=== PATIENT | female | born 1965 | race Caucasian/White ===

== ENCOUNTER 2017-03-11 08:39 | Emergency (ER) | payer OTHER ==
[2017-03-11 08:50] VITALS: BP 153/83
[2017-03-11] MEDS ORDERED: CLINDAMYCIN 150 MG CAPSULE PO STA (09:11)
--- NOTE | 2017-03-11 09:14 | ED Physician Documentation ---
PD HPI HEENT - Stated complaint Stated Complaint: SWOLLEN FACE/R - Chief complaint Chief Complaint: Heent - History obtained from History obtained from: Patient - History of Present Illness Timing - onset: How many days ago (4) Timing - duration: Days (4) Timing - details: Gradual onset Location: Other (right facial) Associated symptoms: Facial swelling. No: Fever, Headache, Cough Similar symptoms before: No diagnosis - Additional information Additional information: The patient is a 52-year-old female who presents with right facial swelling that started 4 days ago and has been gradually increasing. She reports swelling of her right submandibular glands. She denies fever, headache, earache , or toothache. She has a history of similar symptoms intermittently for years , and reports that it usually resolves with a "salty taste" in her mouth. Review of Systems Constitutional: denies: Fever Eyes: denies: Irritation Ears: denies: Ear pain Nose: denies: Congestion Throat: reports: Other (Swollen glands). denies: Sore throat Cardiac: denies: Chest pain / pressure Respiratory: denies: Dyspnea, Cough GI: denies: Abdominal Pain, Nausea, Vomiting : denies: Dysuria Skin: denies: Rash Musculoskeletal: denies: Neck pain, Back pain, Extremity swelling Neurologic: denies: Focal weakness, Numbness, Headache PD PAST MEDICAL HISTORY - Past Medical History Past Medical History: Yes Cardiovascular: Hypertension, High cholesterol, Coronary artery disease, [place] Respiratory: Asthma, COPD, Pneumonia Neuro: None Endocrine/Autoimmune: Type 2 diabetes GI: GERD, Diverticulitis, Other : None HEENT: Other Psych: Anxiety, Panic attacks Musculoskeletal: None, Osteoarthritis Derm: None - Past Surgical History Past Surgical History: Yes General: Colonoscopy 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, 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, Other Cardiovascular: Coronary stent - Present Medications Home Medications: Ambulatory Orders Medication Instructions Recorded Confirmed metFORMIN [Glucophage] 850 mg PO TIDWM 01/04/14 10/20/16 [place]-3/Dha/Epa/Fish Oil [Fish Oil] 1,200 mg PO BID 09/04/14 10/20/16 Pioglitazone [Actos] 45 mg PO DAILY 09/04/14 10/20/16 Simvastatin 80 mg PO DAILY 09/04/14 10/20/16 Clopidogrel [Plavix] 75 mg PO DAILY 01/29/16 10/20/16 Albuterol 2.5 mg INH Q4H PRN 01/30/16 10/20/16 Multivitamin [Theragran] 1 each PO ONCE 01/30/16 10/20/16 Azithromycin [Zithromax] 250 mg PO DAILY #6 tablet 10/20/16 Glipizide 5 mg ORAL DAILY 10/20/16 10/20/16 Omeprazole 20 mg ORAL DAILY 10/20/16 10/20/16 Sertraline [Zoloft] 50 mg ORAL DAILY 10/20/16 10/20/16 predniSONE [Deltasone] 10 mg PO DAILY #26 tablet 10/20/16 Clindamycin HCl 300 mg PO QID #28 capsule 03/11/17 - Allergies Allergies/Adverse Reactions: Allergies Allergy/AdvReac Type Severity Reaction Status Date / Time gabapentin Allergy Intermediate Rash Verified 10/20/16 07:48 Sulfa (Sulfonamide Allergy Intermediate Rash Verified 10/20/16 07:48 Antibiotics) lisinopril AdvReac Intermediate Rash/cough Verified 10/20/16 07:48 "All pain medication" Allergy Unknown Hives Uncoded 03/11/17 08:51 - Social History Does the pt smoke?: Yes Smoking Status: Current every day smoker Does the pt drink ETOH?: No Does the pt have substance abuse?: No - Immunizations Immunizations are current?: No Immunizations: TDAP >10years/unknown PD ED PE NORMAL - Vitals Vital signs reviewed: Yes (Initially hypertensive.) - General General: Alert and oriented X 3, Well developed/nourished - HEENT HEENT: Atraumatic, PERRL, EOMI, Ears normal, Pharynx benign, Other (There is mild right facial swelling mostly at the temporomandibular region, with associated mild tenderness to palpation. There is no tenderness with palpation on individual teeth.) - Neck Neck: Supple, no meningeal sign, Thyroid normal, No JVD, Other (Mildly enlarged anterior cervical and submandibular nodes on the right.) - Cardiac Cardiac: RRR, No murmur - Respiratory Respiratory: No respiratory distress, Clear bilaterally - Abdomen Abdomen: Soft, Non tender - Back Back: No CVA TTP - Derm Derm: No rash - Extremities Extremities: No edema, No calf tenderness / cord - Neuro Neuro: Alert and oriented X 3, No motor deficit, Normal speech Results - Vitals Vitals: Oxygen O2 Source Room air PD MEDICAL DECISION MAKING - ED course Complexity details: considered differential, d/w patient ED course: The patient's facial swelling is most likely caused by dental abscess, even though she does not have toothache. The fact that she has a history of similar symptoms relieved by foul tasting drainage in her mouth, suggests spontaneously draining abscess. Parotid duct stenosis is a less likely consideration. It is unlikely that obstruction of the parotid gland would result in cervical adenopathy. The degree of swelling is not so significant as to warrant emergent CT scanning of the facial soft tissue. Treatment in the emergency department included administration of clindamycin, 300 mg orally. She is being discharged with prescription for clindamycin. I discussed with her the likely cause of her illness, antibiotic treatment and outpatient follow-up, including dentistry, as well as potentially worrisome signs or symptoms that should prompt reevaluation in the emergency department. Departure - Departure Disposition: 01 Home, Self Care Clinical Impression: Dental abscess Condition: Stable Instructions: ED Abscess Dental Follow-Up: Bouchra Torres MD [Primary Care Provider] - Prescriptions: Clindamycin HCl 300 mg PO QID #28 capsule Comments: Take clindamycin 4 times daily as prescribed. Each probiotic yogurt while on antibiotic therapy. Followup with a dentist as soon as possible. Call to schedule an appointment. Return to the emergency department if you develop increasing facial swelling, increasing pain, or otherwise worsening symptoms. Discharge Date/Time: 03/11/17 09:33
[2017-03-11] MEDS ORDERED: CLINDAMYCIN 150 MG CAPSULE PO ONE (09:27)
== END 2017-03-11 09:33 | disposition home or self-care (01) ==
LOC: ED 08:39
DX: K04.7 Periapical abscess without sinus (principal); I10 Essential (primary) hypertension; E11.9 Type 2 diabetes mellitus without complications; Z79.84 Long term (current) use of oral hypoglycemic drugs; Z79.02 Long term (current) use of antithrombotics/antiplatelets; F17.200 Nicotine dependence, unspecified, uncomplicated
CPT/HCPCS: 99282; 99283; A9270

== ENCOUNTER 2017-03-31 18:15 | Emergency (ER) | payer OTHER ==
--- NOTE | 2017-03-31 19:35 | ED Physician Documentation ---
PD HPI UPPER EXT INJURY - Stated complaint Stated Complaint: LT HAND PX - Chief complaint Chief Complaint: Ext Problem - History obtained from History obtained from: Patient - History of Present Illness Location: Left, Wrist (dorsal aspect) Type of injury: No: Fall, Twist Timing - duration: Days Timing - details: Gradual onset, Still present (also having pain in right hip.) Improved by: Rest Worsened by: Moving Associated symptoms: No: Weakness, Numbness, Swelling, Discolored Similar symptoms before: Has not had sx before Recently seen: Not recently seen Review of Systems Constitutional: reports: Myalgias, Fatigue. denies: Fever, Chills Nose: denies: Rhinorrhea / runny nose, Congestion Throat: denies: Sore throat Cardiac: denies: Chest pain / pressure Respiratory: denies: Cough GI: denies: Abdominal Pain, Nausea, Vomiting, Diarrhea Skin: denies: Rash, Lesions PD PAST MEDICAL HISTORY - Past Medical History Cardiovascular: Hypertension, High cholesterol, Coronary artery disease, [place] Respiratory: Asthma, COPD, Pneumonia Neuro: None Endocrine/Autoimmune: Type 2 diabetes GI: GERD, Diverticulitis, Other : None HEENT: Other Psych: Anxiety, Panic attacks Musculoskeletal: None, Osteoarthritis Derm: None - Past Surgical History Past Surgical History: Yes General: Colonoscopy 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, 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, Other Cardiovascular: Coronary stent - Present Medications Home Medications: Ambulatory Orders Medication Instructions Recorded Confirmed metFORMIN [Glucophage] 850 mg PO TIDWM 01/04/14 03/31/17 [place]-3/Dha/Epa/Fish Oil [Fish Oil] 1,200 mg PO BID 09/04/14 03/31/17 Pioglitazone [Actos] 45 mg PO DAILY 09/04/14 03/31/17 Simvastatin 80 mg PO DAILY 09/04/14 03/31/17 Clopidogrel [Plavix] 75 mg PO DAILY 01/29/16 03/31/17 Albuterol 2.5 mg INH Q4H PRN 01/30/16 03/31/17 Multivitamin [Theragran] 1 each PO ONCE 01/30/16 03/31/17 Azithromycin [Zithromax] 250 mg PO DAILY #6 tablet 10/20/16 03/31/17 Glipizide 5 mg ORAL DAILY 10/20/16 03/31/17 Omeprazole 20 mg ORAL DAILY 10/20/16 03/31/17 Sertraline [Zoloft] 50 mg ORAL DAILY 10/20/16 03/31/17 predniSONE [Deltasone] 10 mg PO DAILY #26 tablet 10/20/16 03/31/17 Clindamycin HCl 300 mg PO QID #28 capsule 03/11/17 03/31/17 Dexamethasone [Decadron] 4 mg PO DAILY #5 tablet 03/31/17 - Allergies Allergies/Adverse Reactions: Allergies Allergy/AdvReac Type Severity Reaction Status Date / Time gabapentin Allergy Intermediate Rash Verified 03/31/17 18:19 Sulfa (Sulfonamide Allergy Intermediate Rash Verified 03/31/17 18:19 Antibiotics) lisinopril AdvReac Intermediate Rash/cough Verified 03/31/17 18:19 "All pain medication" Allergy Unknown Hives Uncoded 03/31/17 18:19 - Social History Does the pt smoke?: Yes Smoking Status: Current every day smoker Does the pt drink ETOH?: No Does the pt have substance abuse?: No - Immunizations Immunizations are current?: No Immunizations: TDAP >10years/unknown PD ED PE NORMAL - Vitals Vital signs reviewed: Yes - General General: Alert and oriented X 3, No acute distress, Well developed/nourished - Neck Neck: Supple, no meningeal sign, No adenopathy - Cardiac Cardiac: RRR, No murmur - Respiratory Respiratory: Clear bilaterally - Abdomen Abdomen: Normal bowel sounds, Soft, Non tender - Back Back: No CVA TTP - Derm Derm: Normal color, Warm and dry, No rash - Extremities Extremities: Other (left wrist with tenderness dorsum mid aspect without drepitance, redness, warmth. Right hip with some tenderness laterally. No noted warmth of the joint. ) Results - Vitals Vitals: Oxygen O2 Source Room air - Labs Labs: Laboratory Tests 03/31/17 03/31/17 03/31/17 20:13 20:13 20:13 WBC 11.4 H RBC 4.63 Hgb 10.7 L Hct 35.0 L MCV 75.5 L MCH 23.1 L MCHC 30.6 L RDW 18.2 H Plt Count 341 MPV 7.8 L Neut # 7.1 H Lymph # 3.3 [place] # 0.7 Eos # 0.1 Baso # 0.1 Absolute Nucleated RBC 0.00 Nucleated RBCs 0.0 ESR 21 Sodium 138 Potassium 3.7 Chloride 103 Carbon Dioxide 25 Anion Gap 10.0 BUN 19 Creatinine 0.7 Estimated GFR (MDRD) 88 L Glucose 98 Calcium 9.6 Total Bilirubin 0.3 AST 16 ALT 18 Alkaline Phosphatase 72 C-Reactive Protein 1.0 Total Protein 7.2 Albumin 4.0 Globulin 3.2 Albumin/Globulin Ratio 1.3 Lipase 47 PD MEDICAL DECISION MAKING - ED course Complexity details: reviewed results, considered differential (presume coincidence of pain in wrist and hip. No markers to suggest autimmune nor infectious. ), d/w patient Departure - Departure Disposition: Home, Self Care Clinical Impression: Left wrist tendonitis, Right hip pain Condition: Stable Record reviewed to determine appropriate education?: Yes Instructions: ED Sprain Wrist Follow-Up: Bouchra Torres MD [Primary Care Provider] - Prescriptions: Dexamethasone [Decadron] 4 mg PO DAILY #5 tablet Comments: Use your wrist brace to support the wrist. Decadron daily for 5 days to reduce inflammation. Add Tylenol 650 mg 4 times daily for the pain. Activity as able. Recheck if not improved over the next several days/week. Discharge Date/Time: 03/31/17 21:26
[2017-03-31] MEDS ORDERED: DEXAMETHASONE 10 MG/ML VIAL PO STA (19:59)
[2017-03-31] MEDS ORDERED: ACETAMINOPHEN 500 MG TABLET PO STA (19:59)
[2017-03-31] MEDS ORDERED: ACETAMINOPHEN 500 MG TABLET PO ONE (20:02)
[2017-03-31] MEDS ORDERED: DEXAMETHASONE 10 MG/ML VIAL ONE (20:02)
[2017-03-31 20:24] LABS: BASOPHILS # (AUTO) 0.1 10^3/uL (0.0-0.1); BASOPHILS % (AUTO) 0.9 %; EOSINOPHILS # (AUTO) 0.1 10^3/uL (0.0-0.7); EOSINOPHILS % (AUTO) 1.3 %; HGB - HEMOGLOBIN 10.7 g/dL (12.0-16.0); LYMPHOCYTES # (AUTO) 3.3 10^3/uL (1.5-3.5); LYMPHOCYTES % (AUTO) 29.1 %; MEAN CORPUSCULAR HEMOGLOBIN 23.1 pg (27.0-31.0); MEAN CORPUSCULAR HGB CONC 30.6 g/dL (32.0-36.0); MEAN CORPUSCULAR VOLUME 75.5 fL (81.0-99.0); MEAN PLATELET VOLUME 7.8 fL (7.9-10.8); MONOCYTES # (AUTO) 0.7 10^3/uL (0.0-1.0); MONOCYTES % (AUTO) 6.5 %; NEUTROPHILS # (AUTO) 7.1 10^3/uL (1.5-6.6); NEUTROPHILS % (AUTO) 62.2 %; RED BLOOD COUNT 4.63 10^6/uL (4.20-5.40); RED CELL DISTRIBUTION WIDTH 18.2 % (12.0-15.0); UNCORRECTED WHITE BLOOD COUNT 11.4 x10^3/uL; WHITE BLOOD COUNT 11.4 x10^3/uL (4.8-10.8)
[2017-03-31 20:36] VITALS: BP 142/79
[2017-03-31 20:38] LABS: ALBUMIN/GLOBULIN RATIO 1.3 (1.0-2.2); BILIRUBIN,TOTAL 0.3 mg/dL (0.2-1.0); CALCIUM 9.6 mg/dL (8.5-10.3); CREATININE 0.7 mg/dL (0.4-1.0); POTASSIUM 3.7 mmol/L (3.5-5.0); TOTAL PROTEIN 7.2 g/dL (6.7-8.2)
== END 2017-03-31 21:26 | disposition home or self-care (01) ==
LOC: ED 18:15
DX: M77.8 Other enthesopathies, not elsewhere classified (principal); M25.532 Pain in left wrist; M25.551 Pain in right hip; M19.90 Unspecified osteoarthritis, unspecified site; I10 Essential (primary) hypertension; E11.9 Type 2 diabetes mellitus without complications; Z79.84 Long term (current) use of oral hypoglycemic drugs; Z79.02 Long term (current) use of antithrombotics/antiplatelets; F17.200 Nicotine dependence, unspecified, uncomplicated
CPT/HCPCS: 36415; 80053; 83690; 85025; 85651; 86140; 99283; A9270

== ENCOUNTER 2017-04-05 22:08 | Emergency (ER) | payer OTHER ==
[2017-04-05] MEDS ORDERED: DEXAMETHASONE 10 MG/ML VIAL PO STA (22:47)
[2017-04-05] MEDS ORDERED: diazePAM 5 MG TABLET PO STA (22:47)
[2017-04-05] MEDS ORDERED: KETOROLAC 60 MG/2 ML VIAL IM STA (22:47)
[2017-04-05] MEDS ORDERED: KETOROLAC 60 MG/2 ML VIAL IVP STA (22:55)
[2017-04-05] MEDS ORDERED: DEXAMETHASONE 10 MG/ML VIAL ONE (22:56)
[2017-04-05] MEDS ORDERED: diazePAM 5 MG TABLET PO ONE (22:56)
[2017-04-05] MEDS ORDERED: KETOROLAC 60 MG/2 ML VIAL ONE (22:56)
[2017-04-05 22:57] LABS: EOSINOPHILS # (AUTO) 0.2 10^3/uL (0.0-0.7); RED CELL DISTRIBUTION WIDTH 18.5 % (12.0-15.0)
[2017-04-05 23:00] LABS: BASOPHILS # (AUTO) 0.1 10^3/uL (0.0-0.1); BASOPHILS % (AUTO) 0.9 %; EOSINOPHILS % (AUTO) 1.4 %; HCT - HEMATOCRIT 35.3 % (37.0-47.0); HGB - HEMOGLOBIN 10.7 g/dL (12.0-16.0); LYMPHOCYTES # (AUTO) 5.5 10^3/uL (1.5-3.5); LYMPHOCYTES % (AUTO) 38.1 %; MEAN CORPUSCULAR HEMOGLOBIN 23.1 pg (27.0-31.0); MEAN CORPUSCULAR HGB CONC 30.3 g/dL (32.0-36.0); MEAN CORPUSCULAR VOLUME 76.1 fL (81.0-99.0); MEAN PLATELET VOLUME 7.2 fL (7.9-10.8); MONOCYTES # (AUTO) 1.1 10^3/uL (0.0-1.0); MONOCYTES % (AUTO) 7.9 %; NEUTROPHILS # (AUTO) 7.4 10^3/uL (1.5-6.6); NEUTROPHILS % (AUTO) 51.7 %; NUCLEATED RED BLOOD CELLS AUTO 0.1 /100WBC; RED BLOOD COUNT 4.64 10^6/uL (4.20-5.40); UNCORRECTED WHITE BLOOD COUNT 14.3 x10^3/uL; WHITE BLOOD COUNT 14.3 x10^3/uL (4.8-10.8)
--- NOTE | 2017-04-05 23:05 | ED Physician Documentation ---
PD HPI UPPER EXT INJURY - Stated complaint Stated Complaint: UNABLE TO MOVE ARMS - Chief complaint Chief Complaint: General - History obtained from History obtained from: Patient, Family - History of Present Illness Location: Both, Shoulder Type of injury: Other (repetitive movements) Where injury occurred: Home, Work Timing - onset: How many weeks ago (1) Timing - details: Abrupt onset Improved by: Immobilization Worsened by: Moving, Palpating Associated symptoms: Weakness. No: Numbness, Swelling, Discolored Contributing factors: No: Prior ortho surgery, Prosthetic joint Similar symptoms before: Work up / diagnostics, Treatment, Follow up Recently seen: Clinic, Emergency Dept - Additonal information Additional information: Patient is a 52 year old female with multiple comorbidities who is presenting to the emergency department for bilateral upper extremity pain. Patient sttes that it started about a week ago in her left wrist. Patient came to the ed and was treated with nsaids and steroids and her symptoms improved. patient reports that the pain came back and migrated to her right shoulder. patient went and saw her pmd who did some tests and stated it might be rhabdo but the test results weren't back. patient states that she couldn't wait to see her doctor so she came to the emergency department for evaluation. Review of Systems Constitutional: reports: Myalgias. denies: Fever, Chills Eyes: denies: Loss of vision, Decreased vision Ears: denies: Loss of hearing, Ear pain Nose: denies: Rhinorrhea / runny nose, Congestion, Epistaxis Throat: denies: Sore throat Cardiac: denies: Chest pain / pressure, Palpitations, Calf pain Respiratory: denies: Cough, Wheezing GI: denies: Abdominal Pain, Nausea, Vomiting : denies: Dysuria, Frequency, Hesitancy Skin: denies: Rash, Lesions, Abrasion (s) Musculoskeletal: reports: Extremity pain, Joint pain Neurologic: denies: Generalized weakness, Focal weakness, Numbness, Difficulty speaking, Near syncope Psychiatric: denies: Depressed Immunocompromised: denies: Immunocompromised PD PAST MEDICAL HISTORY - Past Medical History Cardiovascular: Hypertension, High cholesterol, Coronary artery disease, [place] Respiratory: Asthma, COPD, Pneumonia Neuro: None Endocrine/Autoimmune: Type 2 diabetes GI: GERD, Diverticulitis, Other : None HEENT: Other Psych: Anxiety, Panic attacks Musculoskeletal: None, Osteoarthritis Derm: None - Past Surgical History Past Surgical History: Yes General: Colonoscopy 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, Oophrectomy, Other Cardiovascular: Coronary stent - Present Medications Home Medications: Ambulatory Orders Medication Instructions Recorded Confirmed metFORMIN [Glucophage] 850 mg PO TIDWM 01/04/14 04/05/17 [place]-3/Dha/Epa/Fish Oil [Fish Oil] 1,200 mg PO BID 09/04/14 04/05/17 Pioglitazone [Actos] 45 mg PO DAILY 09/04/14 04/05/17 Simvastatin 80 mg PO DAILY 09/04/14 04/05/17 Clopidogrel [Plavix] 75 mg PO DAILY 01/29/16 04/05/17 Albuterol 2.5 mg INH Q4H PRN 01/30/16 04/05/17 Multivitamin [Theragran] 1 each PO ONCE 01/30/16 04/05/17 Glipizide 5 mg ORAL DAILY 10/20/16 04/05/17 Omeprazole 20 mg ORAL DAILY 10/20/16 04/05/17 Sertraline [Zoloft] 50 mg ORAL DAILY 10/20/16 04/05/17 diazePAM [Valium] 5 mg PO DAILY PM #5 tablet 04/06/17 - Allergies Allergies/Adverse Reactions: Allergies Allergy/AdvReac Type Severity Reaction Status Date / Time gabapentin Allergy Intermediate Rash Verified 04/05/17 23:09 Sulfa (Sulfonamide Allergy Intermediate Rash Verified 04/05/17 23:09 Antibiotics) lisinopril AdvReac Intermediate Rash/cough Verified 04/05/17 23:09 "All pain medication" Allergy Unknown Hives Uncoded 04/05/17 23:09 - Social History Does the pt smoke?: Yes Smoking Status: Current every day smoker Does the pt drink ETOH?: No Does the pt have substance abuse?: No - Immunizations Immunizations are current?: No Immunizations: TDAP >10years/unknown PD ED PE NORMAL - Vitals Vital signs reviewed: Yes - General General: Alert and oriented X 3, Well developed/nourished - HEENT HEENT: Atraumatic, PERRL - Neck Neck: Supple, no meningeal sign - Cardiac Cardiac: RRR, No murmur - Respiratory Respiratory: No respiratory distress, Clear bilaterally - Abdomen Abdomen: Soft, Non tender, Non distended - Derm Derm: Normal color, Warm and dry, No rash - Neuro Neuro: Alert and oriented X 3, No sensory deficit, Normal speech PD ED PE EXPANDED - General General: Alert, In Pain - Extremities Extremities: Right shoulder (tenderness to palpation but no gross deformity. ) , Left shoulder Results - Vitals Vitals: Vital Signs - 24 hr 04/05/17 22:12 Temperature 36.7 C Heart Rate 94 Respiratory 20 Rate Blood Pressure 177/91 H O2 Saturation 97 Oxygen O2 Source Room air - Labs Labs: Laboratory Tests 04/05/17 04/05/17 22:53 22:53 WBC 14.3 H RBC 4.64 Hgb 10.7 L Hct 35.3 L MCV 76.1 L MCH 23.1 L MCHC 30.3 L RDW 18.5 H Plt Count 407 MPV 7.2 L Neut # 7.4 H Lymph # 5.5 H [place] # 1.1 H Eos # 0.2 Baso # 0.1 Absolute Nucleated RBC 0.01 Nucleated RBCs 0.1 Sodium 135 Potassium 3.9 Chloride 102 Carbon Dioxide 23 Anion Gap 10.0 BUN 22 H Creatinine 0.8 Estimated GFR (MDRD) 75 L Glucose 323 H Calcium 8.8 Total Bilirubin 0.4 AST 12 ALT 14 Alkaline Phosphatase 75 Total Creatine Kinase 88 Total Protein 6.7 Albumin 3.6 Globulin 3.1 Albumin/Globulin Ratio 1.2 Lipase 48 PD MEDICAL DECISION MAKING - ED course Complexity details: reviewed old records, reviewed results, re-evaluated patient , considered differential, d/w patient, d/w family ED course: Patient was seen and examined at bedside. labs were drawn and urine was collected. Patient was treated with toradol, decadron and valium. Patient responded well to the therapy. patient's diagnostics were within normal limits aside from the blood glucose. patient required no further inpatient therapy and was stable for discharge with outpatient follow up. Departure - Departure Disposition: 01 Home, Self Care Clinical Impression: Generalized muscle ache Condition: Good Instructions: ED Acute Pain [facility] Follow-Up: Bouchra Torres MD [Primary Care Provider] - Tomorrow Prescriptions: diazePAM [Valium] 5 mg PO DAILY PM #5 tablet Comments: Your diagnostics today were within normal limits. Your pain might simply be do to over exertion. It is important that you follow up with your physcian tomorrow for further evaluation and care. You may return to the emergency at any time if necessary for new, worsening or uncontrollable symptoms.
[2017-04-05 23:10] LABS: ALBUMIN/GLOBULIN RATIO 1.2 (1.0-2.2); BILIRUBIN,TOTAL 0.4 mg/dL (0.2-1.0); CALCIUM 8.8 mg/dL (8.5-10.3); CREATININE 0.8 mg/dL (0.4-1.0); POTASSIUM 3.9 mmol/L (3.5-5.0); TOTAL PROTEIN 6.7 g/dL (6.7-8.2)
[2017-04-06 00:02] LABS: BILIRUBIN,URINE NEGATIVE (NEGATIVE); PH,URINE 5.5 PH (5.0-7.5)
[2017-04-06 00:05] LABS: UA CHARGE (STRIP ONLY) YES; UR CULTURE IF IND NOT INDICATED
[2017-04-06 00:19] VITALS: BP 122/62
== END 2017-04-06 00:19 | disposition home or self-care (01) ==
LOC: ED 22:08
DX: M79.1 Myalgia (principal); I10 Essential (primary) hypertension; E78.00 Pure hypercholesterolemia, unspecified; E11.9 Type 2 diabetes mellitus without complications; Z79.84 Long term (current) use of oral hypoglycemic drugs; I25.10 Atherosclerotic heart disease of native coronary artery without angina pectoris; I25.2 Old myocardial infarction; J44.9 Chronic obstructive pulmonary disease, unspecified; J45.909 Unspecified asthma, uncomplicated; K21.9 Gastro-esophageal reflux disease without esophagitis; M19.90 Unspecified osteoarthritis, unspecified site; F17.200 Nicotine dependence, unspecified, uncomplicated
CPT/HCPCS: 36415; 80053; 81003; 82550; 83690; 85025; 96374; 99283; A9270; 81001; 87086

== ENCOUNTER 2017-04-16 08:22 | Outpatient (CLI) | payer OTHER ==
--- NOTE | 2017-04-16 11:08 | CT Report ---
CT CHEST WITHOUT CONTRAST: 04/16/2017 CLINICAL INDICATION: Followup right upper lobe nodule. COMPARISON: CTA chest 02/10/2016. TECHNIQUE: Axial CT images of the chest were obtained without intravenous contrast. In accordance with CT protocol optimization, one or more of the following dose reduction techniques w ere utilized for this exam: automated exposure control, adjustment of mA and/or KV based on patient size, or use of iterative reconstructive technique. FINDINGS: The heart and great vessels demonstrate atherosclerotic calcifications. No cardiomegaly i s present. No hilar or mediastinal lymphadenopathy is seen. There is persistent ground-glass opacit y in the right upper lobe. The previously noted subpleural nodule in the right upper lobe has resolv ed. No effusion or pneumothorax is present. Limited evaluation of upper abdominal structures demons trates a stable left adrenal adenoma and cholelithiasis. Osseous structures demonstrate degenerative changes. IMPRESSION: PERSISTENT PATCHY CENTRAL GROUND-GLASS OPACITIES IN THE RIGHT UPPER LOBE, WHICH MAY REFL ECT ONGOING INFECTION OR POSSIBLY ALLERGIC ALVEOLITIS. RESOLUTION OF PREVIOUSLY SEEN SUBPLEURAL NODU LE IN THE RIGHT UPPER LOBE. STABLE LEFT ADRENAL ADENOMA. JOB #: [id number] EXT JOB #:[id number]
== END 2017-04-16 08:23 | disposition home or self-care (01) ==
LOC: DI 08:22
PROVIDERS: ATTEND Internal Medicine
DX: R91.8 Other nonspecific abnormal finding of lung field (principal); D35.02 Benign neoplasm of left adrenal gland
CPT/HCPCS: 71250

== ENCOUNTER 2017-07-07 11:55 | Outpatient (CLI) | payer OTHER | END 2017-07-07 11:56 | disposition home or self-care (01) | LOC: LAB.WCP 11:55 | PROVIDERS: ATTEND Internal Medicine Rheumatology | DX: M35.3 Polymyalgia rheumatica (principal) | CPT/HCPCS: 36415; 84443; 85651; 86140 ==

== ENCOUNTER 2018-07-06 08:57 | Emergency (ER) | payer MEDICAID ==
--- NOTE | 2018-07-06 10:03 | ED Physician Documentation ---
PD HPI HEENT - Stated complaint Stated Complaint: JAW PX/SWOLLEN - Chief complaint Chief Complaint: Heent - History obtained from History obtained from: Patient - History of Present Illness Timing - onset: Yesterday Timing - duration: Days (1-2) Timing - details: Abrupt onset Location: Tooth (right lower tooth pain with swelling of gum.) Worsens: Swalllowing Associated symptoms: Swollen nodes, Facial swelling. No: Fever, Congestion, Rhinorrhea, Headache Similar symptoms before: Diagnosis (dental infections in the past), Other (she is concerned about infections in setting of heart stents/etc. Does not have valve replacement.) Review of Systems Constitutional: denies: Fever, Chills, Myalgias Cardiac: denies: Chest pain / pressure, Palpitations Respiratory: denies: Dyspnea, Cough GI: denies: Abdominal Pain, Nausea, Vomiting PD PAST MEDICAL HISTORY - Past Medical History Past Medical History: Yes Cardiovascular: Hypertension, High cholesterol, Coronary artery disease, [place] Respiratory: Asthma, COPD, Pneumonia Endocrine/Autoimmune: Type 2 diabetes GI: GERD, Diverticulitis, Other : None HEENT: Other Psych: Anxiety, Panic attacks Musculoskeletal: None, Osteoarthritis Derm: None - Past Surgical History Past Surgical History: Yes General: Colonoscopy 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, 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, Other Cardiovascular: Coronary stent - Present Medications Home Medications: Ambulatory Orders Medication Instructions Recorded Confirmed metFORMIN [Glucophage] 850 mg PO TIDWM 01/04/14 09/07/17 [place]-3/Dha/Epa/Fish Oil [Fish Oil] 1,200 mg PO BID 09/04/14 09/07/17 Pioglitazone [Actos] 45 mg PO DAILY 09/04/14 09/07/17 Clopidogrel [Plavix] 75 mg PO DAILY 01/29/16 09/07/17 Albuterol 2.5 mg INH Q4H PRN 01/30/16 09/07/17 Multivitamin [Theragran] 1 each PO ONCE 01/30/16 09/07/17 Glipizide 5 mg ORAL DAILY 10/20/16 09/07/17 Omeprazole 20 mg ORAL DAILY 10/20/16 09/07/17 Sertraline [Zoloft] 50 mg ORAL DAILY 10/20/16 09/07/17 Metoprolol Tartrate 0 mg PO BID 09/07/17 09/07/17 predniSONE [Deltasone] 60 mg PO DAILY 5 Days tablet 09/07/17 Clindamycin HCl [Cleocin HCl] 300 mg PO QID #24 capsule 07/06/18 - Allergies Allergies/Adverse Reactions: Allergies Allergy/AdvReac Type Severity Reaction Status Date / Time gabapentin Allergy Intermediate Rash Verified 07/06/18 09:20 Sulfa (Sulfonamide Allergy Intermediate Rash Verified 07/06/18 09:20 Antibiotics) lisinopril AdvReac Intermediate Rash/cough Verified 07/06/18 09:20 "All pain medication" Allergy Unknown Hives Uncoded 07/06/18 09:20 - Social History Does the pt smoke?: Yes Smoking Status: Current every day smoker Does the pt drink ETOH?: No Does the pt have substance abuse?: No - Immunizations Immunizations are current?: No Immunizations: TDAP >10years/unknown PD ED PE NORMAL - Vitals Vital signs reviewed: Yes - General General: Alert and oriented X 3, No acute distress, Well developed/nourished - HEENT HEENT: Pharynx benign, Other (right lower tooth tender to percussion with mild swelling of gum. Mild anterior adenopathy. The parotid gland does not feel enlarged. ) Results - Vitals Vitals: Oxygen O2 Source Room air PD MEDICAL DECISION MAKING - ED course Complexity details: considered differential, d/w patient - Sepsis Event Vital Signs: Oxygen O2 Source Room air Departure - Departure Disposition: 01 Home, Self Care Clinical Impression: Dental abscess Condition: Stable Record reviewed to determine appropriate education?: Yes Instructions: ED Abscess Dental Follow-Up: Bouchra Torres MD [Primary Care Provider] - Prescriptions: Clindamycin HCl [Cleocin HCl] 300 mg PO QID #24 capsule Comments: Continue usual medications. Add clindamycin as directed for the dental infection. Tylenol or ibuprofen if needed for pains. Recheck if not improving over the next few days. Discharge Date/Time: 07/06/18 11:26
[2018-07-06] MEDS ORDERED: CLINDAMYCIN 150 MG CAPSULE PO STA (10:15)
[2018-07-06 10:48] VITALS: BP 176/77
== END 2018-07-06 11:26 | disposition home or self-care (01) ==
LOC: ED 08:57
DX: K04.7 Periapical abscess without sinus (principal); I10 Essential (primary) hypertension; I25.10 Atherosclerotic heart disease of native coronary artery without angina pectoris; E11.9 Type 2 diabetes mellitus without complications; J44.9 Chronic obstructive pulmonary disease, unspecified; F17.200 Nicotine dependence, unspecified, uncomplicated; Z79.84 Long term (current) use of oral hypoglycemic drugs
CPT/HCPCS: 99283; A9270

== ENCOUNTER 2020-02-29 21:33 | Emergency (ER) | payer MEDICAID, MEDICARE ==
--- NOTE | 2020-02-29 21:50 | ED Physician Documentation ---
History of Present Illness - Stated complaint Stated Complaint: R FACE SWELLING - Chief complaint Chief Complaint: Wound - History obtained from History obtained from: Patient - History of Present Illness Timing: How many days ago (3) Pain level now: 6 Improved by: nothing Worsened by: palpation, chewing - Additonal information Additional information: c/o 3 days of gradual onset, gradually worsening right facial swelling and pain. Denies trauma/injury. She says she noted a "white spot" inner aspect of right cheek in mouth. She contacted her PMD (Dr. Torres) earlier today and a prescription for an antibiotic was called to patient's pharmacy. Unfortunately, when patient called the pharmacy this afternoon, she was told the medication would not be available until tomorrow afternoon. Patient says she had fever this evening, Tmax 100.4 Review of Systems Constitutional: reports: Fever. denies: Chills, Myalgias, Sweats Ears: denies: Ear pain Nose: denies: Congestion, Sinus pressure / pain Throat: denies: Dental pain / toothache, Sore throat, Swollen tonsils PD PAST MEDICAL HISTORY - Past Medical History Cardiovascular: Hypertension, High cholesterol, Coronary artery disease, [place] Respiratory: Asthma, COPD, Pneumonia Endocrine/Autoimmune: Type 2 diabetes GI: GERD, Diverticulitis, Other : None HEENT: Other Psych: Anxiety, Panic attacks Musculoskeletal: None, Osteoarthritis Derm: None - Past Surgical History Past Surgical History: Yes General: Colonoscopy Ortho: Other /[employer]: section, Oophrectomy, Other Cardiovascular: Coronary stent - Present Medications Home Medications: Ambulatory Orders Medication Instructions Recorded Confirmed metFORMIN [Glucophage] 850 mg PO TIDWM 01/04/14 09/07/17 Wharton-3/Dha/Epa/Fish Oil [Fish Oil] 1,200 mg PO BID 09/04/14 09/07/17 Pioglitazone [Actos] 45 mg PO DAILY 09/04/14 09/07/17 Clopidogrel [Plavix] 75 mg PO DAILY 01/29/16 09/07/17 Albuterol 2.5 mg INH Q4H PRN 01/30/16 09/07/17 Multivitamin [Theragran] 1 each PO ONCE 01/30/16 09/07/17 Glipizide 5 mg ORAL DAILY 10/20/16 09/07/17 Omeprazole 20 mg ORAL DAILY 10/20/16 09/07/17 Sertraline [Zoloft] 50 mg ORAL DAILY 10/20/16 09/07/17 Metoprolol Tartrate 0 mg PO BID 09/07/17 09/07/17 predniSONE [Deltasone] 60 mg PO DAILY 5 Days tablet 09/07/17 clindamycin HCL [Cleocin HCl] 300 mg PO QID #24 capsule 07/06/18 Amox/Clav 875/125 [Augmentin] 1 each PO Q12H #20 tablet 02/29/20 - Allergies Allergies/Adverse Reactions: Allergies Allergy/AdvReac Type Severity Reaction Status Date / Time gabapentin Allergy Intermediate Rash Verified 02/29/20 21:44 Sulfa (Sulfonamide Allergy Intermediate Rash Verified 02/29/20 21:44 Antibiotics) lisinopril AdvReac Intermediate Rash/cough Verified 02/29/20 21:44 "All pain medication" Allergy Unknown Hives Uncoded 02/29/20 21:44 - Social History Does the pt smoke?: Yes Smoking Status: Current every day smoker Does the pt drink ETOH?: No Does the pt have substance abuse?: No - Immunizations Immunizations are current?: No Immunizations: TDAP >10years/unknown PD ED PE NORMAL - Vitals Vital signs reviewed: Yes - General General: Alert and oriented X 3, No acute distress, Well developed/nourished - HEENT HEENT: Other (subtle right-sided facial swelling without erythema or fluctuance (predominantly right pre-auricular area, no palpable margins). there is mild tenderness to palpation right side of face, pre-auricular) - Neck Neck: Supple, no meningeal sign PD ED PE EXPANDED - HEENT HEENT: Other (scant amount of thick, white material noted at opening of parotid duct (Cheri's duct) with mild swelling, moderate tenderness. "milking" the duct does not result in expression of this material) Results - Vitals Vitals: Vital Signs - 24 hr 02/29/20 02/29/20 02/29/20 21:35 21:52 22:52 Temperature 36.8 C Heart Rate 126 H 107 H 70 Respiratory 18 18 16 Rate Blood Pressure 144/70 H 161/67 H 126/68 O2 Saturation 94 94 95 Oxygen O2 Source Room air PD MEDICAL DECISION MAKING - ED course Complexity details: considered differential, d/w patient ED course: patient is well-appearing/nontoxic (general appearance) and afebrile in ED. There is subtle right facial swelling without fluctuance. A trace amount of thick, white discharge noted at Cheri's duct (scraped away with tongue blade, no discharge followed including with "milking" the duct). will cover for possibl e early sialadenitis with augmentin PO Rx, but given dose of IV Unasyn prior to d/c. Patient declined pain medication Departure - Departure Disposition: 01 Home, Self Care Clinical Impression: Sialadenitis Condition: Good Instructions: ED Submandibular Gland Infec Follow-Up: Bouchra Torres MD [Primary Care Provider] - (3-5 days) Prescriptions: Amox/Clav 875/125 [Augmentin] 1 each PO Q12H #20 tablet Discharge Date/Time: 02/29/20 23:09
[2020-02-29] MEDS ORDERED: AMPICILLIN/SULBACTAM 3 GM in SODIUM CHLORIDE 0.9% MINIBAG 100 ML IV STA (22:08)
[2020-02-29 22:53] VITALS: BP 126/68
== END 2020-02-29 23:09 | disposition home or self-care (01) ==
LOC: ED 21:33
DX: K11.20 Sialoadenitis, unspecified (principal); I10 Essential (primary) hypertension; E11.9 Type 2 diabetes mellitus without complications; F17.200 Nicotine dependence, unspecified, uncomplicated; Z79.84 Long term (current) use of oral hypoglycemic drugs
CPT/HCPCS: 96365; 99283